=== PATIENT | male | born 1995 | race Caucasian/White ===

== ENCOUNTER 2023-10-17 11:46 | Emergency (ER) | payer BC, SELFPAY ==
[2023-10-17 12:07] VITALS: BP 140/72; PULSE 140; RESP 16; TEMP 37.4; O2SAT 98
--- NOTE | 2023-10-17 12:49 | ED.GENADULT ---
HPI - General Adult General Chief complaint: Fever Stated complaint: fever/sinus/throat Time Seen by Provider: 10/17/23 12:45 Source: patient, family, RN notes reviewed and old records reviewed Mode of arrival: ambulatory Limitations: no limitations History of Present Illness HPI narrative: 27 year old male who is developmentally disabled accompanied by mother presents to express care with complaints of fever, cough,not eating for the past 2 days, Mother reports that temperature was 103F [place] evening and she has been treating him with Tylenol, last dose 2 hours ago. Mother reports that she has noted son having some sinus congestion and drainage also, no wheezing or shortness of breath noted. MD complaint: fever, cough,sinus drainage, not eating Onset (ago): day(s) (2 dys) Severity: moderate Treatments prior to arrival: other (tylenol) Related Data Allergies Allergy/AdvReac Type Severity Reaction Status Date / Time No Known Allergies Allergy Verified 10/17/23 12:06 Review of Systems Review of Systems: CONSTITUTIONAL: Reports malaise, chills, sweats, or fever. EYES: Denies visual changes, redness, or discharge. ENT: Reports rhinorrhea, congestion, sinus pain, positive for otalgia and sore throat. CARDIOVASCULAR: Denies chest pain, palpitations, or edema. RESPIRATORY: Reports cough.? Denies dyspnea. GASTROINTESTINAL: Denies abdominal pain, nausea, vomiting, diarrhea SKIN: Denies rash or itching. MUSCULOSKELETAL: Denies myalgia. NEUROLOGIC: Denies headache. All systems reviewed & are unremarkable except as noted in HPI and below PMFSH Past Medical History Medical History (Updated 10/19/23 @ 07:43 by Ling Crawford NP) Developmental disability Social History Social History (Updated 10/19/23 @ 07:43 by Ling Crawford NP) Smoking status: Never smoker Alcohol intake: never Substance use type: does not use Living arrangements: with family Additional occupation/education comments: disabled Gender identity (if verbalized by the patient): Male Comments At time of signature, agree with nursing past medical, surgical, social and family history. There is no relevant family history pertinent to the presenting complaint Exam Narrative: GENERAL: Well-appearing, well-nourished, and in no acute distress. HEAD: Normocephalic EYES: PERRLA, conjunctivae clear ENT: Nares clear, turbinates edematous and erythematous, clear discharge. Mucous membranes moist. Left TM red, Right TM pearly arce with dull light reflex; no tragal tenderness. Oropharynx erythematous without lesions. Tonsils enlarged and without exudate, no drooling, no hoarseness, no trismus, uvula midline.post nasal discharge NECK: Supple. No lymphadenopathy CHEST: Clear to auscultation, breath sounds equal. No wheezing, rhonchi, rales, or stridor. No respiratory distress, speaks in full sentences.cough noted,SAO2 98% on room air HEART: Regular rate and rhythm. No murmur heard. SKIN: Warm, dry, no rash. NEURO: Alert and oriented x3. PSYCH: Normal mood and affect, autistic and developmentally disabled cooperative Course Course Emergency Course: Patient is aware of diagnosis, understands and agrees to treatment plan.? Anticipatory guidance given.? Patient agrees to follow-up as directed and is aware of reasons to seek care at the emergency department. Portions of this record may have been created with voice recognition software Level of Care: Express Care Visit Vital Signs Vital signs: Vital Signs Temperature 37.4 C 10/17/23 12:07 Pulse Rate 140 H 10/17/23 12:07 Respiratory Rate 10/17/23 12:07 Blood Pressure 140/72 10/17/23 12:07 Pulse Oximetry 98 10/17/23 12:07 Oxygen Delivery Room Air 10/17/23 12:07 Temperature 37.4 C 10/17/23 12:07 Pulse Rate 140 H 10/17/23 12:07 Respiratory Rate 16 10/17/23 12:07 Blood Pressure 140/72 10/17/23 12:07 Pulse Oximetry 98
== END 2023-10-17 13:39 | disposition home or self-care (01) ==
PROVIDERS: Emergency Provider Registered Nurse; PCP Nurse Practitioner Family
DX: H65.02 Acute serous otitis media, left ear (principal); J02.9 Acute pharyngitis, unspecified; F89 Unspecified disorder of psychological development
CPT/HCPCS: 87081; 87880; 99213; G0463